=== PATIENT | male | born 1990 | race Two or more races ===

== ENCOUNTER 2020-05-14 02:36 | Emergency (ER) | payer SELFPAY ==
[~2020-05-14] VITALS: Ht 180.3 cm; Wt 74.8 kg
--- NOTE | 2020-05-14 02:37 | NUR ---
[facility] AND [employer] FROM HOME C/O AGITATION. VERSED 5MG IM GIVEN BY EMS EMAIL MARKETING SPECIALIST. PER EMS PT WAS YELLING CONSTANTLY X2 HRS E[employer]ETING SPECIALIST., PT TO BED 12, AWAKE/ALERT, NOTED BIZARRE BEHAVIOR, NOT IN ACUTE DISTRESS, -SOB. GOWNED, PLACED ON MONITOR, AWAITING ER PROVIDER DOMINICKAL
[2020-05-14] MEDS ORDERED: OLANZAPINE 10 MG VIAL IM ONE ×2 (02:44→03:00)
--- NOTE | 2020-05-14 03:00 | NUR ---
Patient is resting comfortably in bed with eyes closed. Easily aroused. VSS
[2020-05-14 03:01] LABS: BASOPHILS % (AUTO) 0.2 % (0.0-2.0); EOSINOPHILS % (AUTO) 0.1 % (0.0-6.0); HEMATOCRIT 48 % (39-51); HEMOGLOBIN 16.3 g/dL (13.5-17.5); LYMPHOCYTES # (AUTO) 0.8 /CMM (0.8-4.8); LYMPHOCYTES % (AUTO) 4.2 % (20.0-44.0); MEAN CORPUSCULAR HGB CONC 34 g/dl (31.0-36.0); MEAN CORPUSCULAR VOLUME 89 fL (80-96); MONOCYTES # (AUTO) 0.9 /CMM (0.1-1.30); MONOCYTES % (AUTO) 5.3 % (2.0-12.0); NEUTROPHILS # (AUTO) 16.1 /CMM (1.8-8.9); NEUTROPHILS % (AUTO) 90.2 % (43.0-81.0); PLATELET COUNT (AUTO) 225 /CMM (150-450); RED BLOOD CELL COUNT(AUTO) 5.44 MIL/uL (4.5-6.0); WHITE BLOOD COUNT (AUTO) 17.8 K/uL (4.3-11.0)
[2020-05-14 03:02] LABS: CALCIUM, SERUM 9.3 mg/dL (8.5-10.1); CREATININE 1.5 mg/dL (0.6-1.3); POTASSIUM 3.1 mmol/L (3.5-5.1)
[2020-05-14 03:09] LABS: ALBUMIN 4.4 g/dL (3.4-5.0); BILIRUBIN,DIRECT 0.3 mg/dL (0.0-0.2); BILIRUBIN,TOTAL 0.8 mg/dL (0.2-1.0); TOTAL PROTEIN, SERUM 7.8 g/dL (6.4-8.2)
[2020-05-14] MEDS ORDERED: HALOPERIDOL LACTATE INJ 5 MG/ML VIAL IM ONE (04:00)
[2020-05-14] MEDS ORDERED: diphenhydrAMINE HCL 50 MG/ML VIAL IM ONE (04:00)
[2020-05-14] MEDS ORDERED: HALOPERIDOL LACTATE INJ 5 MG/ML VIAL ONE (04:09)
[2020-05-14] MEDS ORDERED: diphenhydrAMINE HCL 50 MG/ML VIAL ONE (04:09)
[2020-05-14 05:08] LABS: BILIRUBIN,URINE Negative (NEGATIVE); BLOOD, URINE Trace-lysed Ery/uL (NEGATIVE); COLOR,URINE YELLOW (YELLOW); LEUKOCYTE ESTERASE ,URINE Negative (NEGATIVE); NITRITE, URINE Negative (NEGATIVE); PROTEIN,URINE 30 mg/dl (NEGATIVE); UGLUCOSE Negative (NEGATIVE); UROBILINOGEN,URINE 0.2 EU/dL (0.2)
--- NOTE | 2020-05-14 05:35 | NUR ---
PT SLEEPING RESTING QUIETLY, SITTER AT BEDSIDE FOR SAFETY
[2020-05-14 05:49] LABS: RBC,URINE 0-2 /HPF (0-2); WBC,URINE 0-2 /HPF (0-3)
[2020-05-14 05:50] LABS: BACTERIA,URINE Rare /HPF (None Seen); SQUAMOUS EPITHELIAL CELL,UR Few /HPF (None Seen)
--- NOTE | 2020-05-14 07:16 | NUR ---
SLEEPING, EASILY AROUSABLE, NOT IN ACUTE DISTRESS,-SOB, VSS.
--- NOTE | 2020-05-14 09:00 | NUR ---
PT awake alert and oriented. oprovided with breakfast. denies si or hi.
--- NOTE | 2020-05-14 11:03 | NUR ---
pt awake alert and oruiented x3. able to make needs knows. vs checked. stable. denies si or hi
--- NOTE | 2020-05-14 13:06 | NUR ---
pt provided with lunch. vs stable.
--- NOTE | 2020-05-14 14:31 | NUR ---
Patient discharged to home in stable condition. Written and verbal after care instructions given. Patient verbalizes understanding of instruction.
[2020-05-14 14:32] VITALS: BP 141/78
== END 2020-05-14 14:33 | disposition home or self-care (01) ==
LOC: ER 02:37
DX: F19.959 Other psychoactive substance use, unspecified with psychoactive substance-induced psychotic disorder, unspecified (principal); F29 Unspecified psychosis not due to a substance or known physiological condition
CPT/HCPCS: 36415; 80048; 80076; 80299; 80307; 80320; 81001; 85025; 96372 ×2; 99285; J1200; J1630; J3490; J7040; G0480